=== PATIENT | female | born 1960 | race African-American/Black ===

== ENCOUNTER 2016-09-06 20:36 | Emergency (ER) | payer OTHER ==
[~2016-09-06] VITALS: Ht 170.2 cm; Wt 53.5 kg
[2016-09-06 20:49] VITALS: BP 100/73
== END 2016-09-06 23:51 | disposition left against medical advice (07) ==
LOC: ER 20:36
DX: R10.9 Unspecified abdominal pain (principal); R07.89 Other chest pain; R11.2 Nausea with vomiting, unspecified; Z53.21 Procedure and treatment not carried out due to patient leaving prior to being seen by health care provider
CPT/HCPCS: 93005